=== PATIENT | male | born 1990 | race Caucasian/White ===

== ENCOUNTER 2016-11-27 18:19 | Emergency (ER) | payer OTHER ==
[~2016-11-27] VITALS: Ht 185.4 cm; Wt 74.8 kg
[2016-11-27 18:30] VITALS: BP 128/63
== END 2016-11-27 19:47 | disposition home or self-care (01) ==
LOC: ER 18:19
DX: S60.212A Contusion of left wrist, initial encounter (principal); X58.XXXA Exposure to other specified factors, initial encounter; Y93.89 Activity, other specified; Y99.8 Other external cause status; Y92.89 Other specified places as the place of occurrence of the external cause
CPT/HCPCS: 73110